=== PATIENT | female | born 1980 | race Caucasian/White ===

== ENCOUNTER 2020-08-01 13:46 | Outpatient (CLI) | payer BC ==
--- NOTE | 2020-08-01 14:53 | ULT ---
Pelvic sonogram transabdominal and transvaginal imaging with duplex evaluation HISTORY: Pelvic pain. FINDINGS: Urinary bladder is incompletely distended. Uterus has a heterogeneous. It is slightly retro verted and measures up to 6.9 cm length atrium is 0.46. Prominence of small cystic structures throughout the cervix with the appearance of nabothian cysts. No free fluid within the pelvis. Right ovary is 3.6 cm length and left 1.9 cm. Each shows small follicles and demonstrates good color and spectral Doppler flow. IMPRESSION : Nabothian cysts of the cervix are usually of no clinical significance. No significant abnormalities a re demonstrated.
== END 2020-08-01 13:47 | disposition home or self-care (01) ==
LOC: SCSULT 13:46
PROVIDERS: ATTEND Family Medicine
DX: R10.2 Pelvic and perineal pain (principal); N88.8 Other specified noninflammatory disorders of cervix uteri
CPT/HCPCS: 76856

== ENCOUNTER 2020-08-26 13:31 | Outpatient (CLI) | payer BC ==
--- NOTE | 2020-08-26 14:45 | RAD ---
XR Knee Lt 4 View STANDARD HISTORY: Left knee pain FINDINGS: No fracture or dislocation is identified.
--- NOTE | 2020-08-26 14:46 | RAD ---
XR Hip Lt 2-3 View HISTORY: Left hip pain FINDINGS: No fracture or dislocation is identified.
--- NOTE | 2020-08-26 14:46 | RAD ---
XR Hip Rt 2-3 View HISTORY: Right hip pain FINDINGS: No fracture or dislocation is identified.
--- NOTE | 2020-08-26 14:47 | RAD ---
XR Lumbar Spine 2 Or 3 View HISTORY: Low back pain COMPARISON: None. FINDINGS: There are 5 lumbar-type vertebral bodies. There are degenerative changes at L5-S1 level. No fracture, subluxation or bony destruction is seen. IMPRESSION: Degenerative changes at L5-S1 level.
== END 2020-08-26 13:32 | disposition home or self-care (01) ==
LOC: SCSRAD 13:31
PROVIDERS: ATTEND Family Medicine
DX: M54.5 Low back pain (principal); M25.551 Pain in right hip; M25.552 Pain in left hip; M25.562 Pain in left knee; M47.817 Spondylosis without myelopathy or radiculopathy, lumbosacral region
CPT/HCPCS: 72100